=== PATIENT | male | born 1955 | race Caucasian/White ===

== ENCOUNTER → 2017-11-29 12:28 | Outpatient (CLI) | payer OTHER, SELFPAY ==
--- NOTE | 2017-11-29 12:34 | RAD_ITS ---
STUDY: X-RAY - LUMBAR SPINE REASON FOR EXAM: Male, 62 years old. Low back pain. TECHNIQUE: 3 view(s) of the lumbar spine were obtained. COMPARISON: None FINDINGS: Normal lumbar lordosis. There is no substantial scoliosis. There is a normal alignment of the vertebrae. Normal vertebral bodies and endplates. There is intervertebral disc space narrowing in the lower thoracic spine and at L3-4 with osteophyte formation. There is diffuse facet sclerosis. The soft tissue structures are unremarkable. RAD/Lumbar Spine 2 or 3 Views IMPRESSION: Lower thoracic and lumbar spondylosis as described. Electronically Signed: Ajit Ann MD at 10:50 EST , Service support ,
== END ==
PROVIDERS: Family Provider Family Medicine; PCP Family Medicine; Visit Provider Anesthesiology Pain Medicine
DX: M54.9 Dorsalgia, unspecified (principal)
CPT/HCPCS: 72100

== ENCOUNTER → 2018-01-03 14:49 | Outpatient (CLI) | payer OTHER, SELFPAY ==
--- NOTE | 2018-01-03 14:52 | MRI_ITS ---
STUDY: MRI LUMBAR SPINE WITHOUT CONTRAST REASON FOR EXAM: Male, 63 years old. Back pain and bilateral leg TECHNIQUE: Standardized fat and water weighted pulse sequences were obtained in the sagittal and axial planes. COMPARISON: None FINDINGS: T12-L1: Normal endplates. Normal disc height, hydration and morphology. Normal bilateral facet joints. Normal central canal and bilateral lateral recesses. Normal bilateral intervertebral neural foramina. Normal lumbar lordosis. There is no substantial scoliosis. Normal conus medullaris that terminates at T12-L1 L1-2: Normal endplates. Normal disc height, hydration and morphology. Normal bilateral facet joints. Normal central canal and bilateral lateral recesses. Normal bilateral intervertebral neural foramina. L2-3: Normal endplates. Normal disc height, desiccation and minimal annular bulge. Normal bilateral facet joints. Normal central canal and bilateral lateral recesses. Normal bilateral intervertebral neural foramina. L3-4: Grade 1 spondylolisthesis . Mild endplate spurring.. Normal disc height, desiccation and moderate annular bulge with small right paracentral disc protrusion. Bilateral facet arthropathy and thickening of ligamenta flava. Mild narrowing of the central canal. Moderate bilateral recess and neuroforaminal stenosis exaggerated by shortening of the pedicles L4-5: Normal endplates. Normal disc height, desiccation and moderate annular bulge.. Bilateral facet arthropathy and thickening of ligamenta flava.. Normal central canal. Moderate bilateral recess and neuroforaminal stenosis exaggerated by shortened pedicles. L5-S1: Normal endplates. Normal disc height, desiccation and minor annular bulge.. Bilateral facet arthropathy. Normal central canal and bilateral lateral recesses. Normal bilateral intervertebral neural foramina. Normal visualized sacral ala. Bilateral renal cysts are present. Normal visualized paraspinous soft tissue structures. MRI/Spine Lumbar (Routine) IMPRESSION: Spinal stenosis at L3-4 and L4-5 secondary to disc disease and bony hypertrophy exaggerated by shortened pedicles due to spondylolisthesis deformity. Findings as above Electronically Signed: Daron Strange MD at 0:07 EDT , Service support ,
== END ==
PROVIDERS: Family Provider Family Medicine; PCP Family Medicine; Visit Provider Anesthesiology Pain Medicine
DX: M54.9 Dorsalgia, unspecified (principal); M79.606 Pain in leg, unspecified
CPT/HCPCS: 72148

== ENCOUNTER → 2019-08-16 16:56 | Outpatient (CLI) | payer OTHER, SELFPAY ==
--- NOTE | 2019-08-16 16:58 | MRI_ITS ---
STUDY: MRI LUMBAR SPINE WITHOUT CONTRAST REASON FOR EXAM: Male, 64 years old. Low back pain and radiculopathy in both legs with numbness and tingling in the feet TECHNIQUE: Standardized fat and water weighted pulse sequences were obtained in the sagittal and axial planes. COMPARISON: December 26, 2017 and MR lumbar spine FINDINGS: T12-L1: Normal endplates. Normal disc height, hydration and morphology. Normal bilateral facet joints. Normal central canal and bilateral lateral recesses. Normal bilateral intervertebral neural foramina. Normal lumbar lordosis. There is no substantial scoliosis. Normal conus medullaris that terminates at the L1. L1-2: Normal endplates. Normal disc height, hydration and morphology. Normal bilateral facet joints. Normal central canal and bilateral lateral recesses. Normal bilateral intervertebral neural foramina. Small radial annular tear posteriorly. L2-3: Normal endplates. Normal disc height, hydration and morphology. Normal bilateral facet joints. Normal central canal and bilateral lateral recesses. Normal bilateral intervertebral neural foramina. L3-4: Slight anterior subluxation. Moderately severe central and lateral trefoil type spinal stenosis due to a broad-based posterior disc marginal osteophyte and hypertrophic facet disease. L4-5: Moderate hypertrophic facet disease with fluid in the facets. Small broad-based posterior disc marginal osteophyte. Moderate narrowing of the neural foramina bilaterally. Central canal patent. L5-S1: Left paracentral disc marginal osteophyte causing severe narrowing of the neural foramen. Central canal and right neural foramen patent. Normal visualized sacral ala. Normal visualized paraspinous soft tissue structures. Bilateral renal cortical cyst. MRI/Spine Lumbar (Routine) IMPRESSION: Multilevel neural foraminal narrowing as noted above. Grade 1 spondylolisthesis L3-4. Electronically Signed: Liborio Wong MD at 18:46 EST , Service support ,
== END ==
PROVIDERS: Family Provider Family Medicine; PCP Family Medicine; Referring Provider Anesthesiology Pain Medicine; Visit Provider Anesthesiology Pain Medicine
DX: M54.9 Dorsalgia, unspecified (principal); M79.609 Pain in unspecified limb
CPT/HCPCS: 72148

== ENCOUNTER → 2019-10-22 09:23 | Outpatient (CLI) | payer OTHER, SELFPAY ==
[2019-10-22 09:14] VITALS: BMI 32.7
--- NOTE | 2019-10-22 09:23 | RAD_ITS ---
STUDY: X-RAY - LUMBAR SPINE REASON FOR EXAM: Male, 64 years old. LOWER BACK PAIN TECHNIQUE: 6 view(s) of the lumbar spine were obtained. COMPARISON: November 29, 2017 lumbar spine x-ray FINDINGS: Normal lumbar lordosis. There is no substantial scoliosis. L3-L4, there is a 5 to 6 mm anterolisthesis at the level of L3-L4 with disc space narrowing. There are flexion images demonstrated with slight greater 1 to 2 mm interval change with flexion at that level allowing for flexion and extension provided. There is a stable appearing extension upright view when compared to the neutral view. There is multilevel endplate spondylosis of the lumbar vertebrae. The soft tissue structures are unremarkable. RAD/L/S Spine Min 4 Views IMPRESSION: Multilevel degenerative change anterolisthesis of L3-L4 anterolisthesis measuring approximately 5 to 6 mm with minimal increase with flexion. Electronically Signed: Neda Trivedi MD at 23:13 EST Tel , Service support ,
== END ==
PROVIDERS: Family Provider Family Medicine; PCP Family Medicine; Referring Provider Orthopaedic Surgery; Visit Provider Orthopaedic Surgery
DX: M54.5 Low back pain (principal)
CPT/HCPCS: 72110

== ENCOUNTER 2019-11-21 10:00 | Outpatient (RCR) | payer OTHER, SELFPAY ==
[2019-10-22 09:14] VITALS: BMI 32.7
--- NOTE | 2019-10-23 15:59 | HP.PTEVAL ---
Patient's Visit Information ROD CASTRO is a 64 year old M referred to Physical Therapy by Donya Richey MD with a diagnosis of LUMBAR STENOSIS AND SPONDYLOLISTHESIS. Date of Evaluation: 10/23/19 Physical Therapist: Gavi Pride PT, Cert MDT - Visit Plan Frequency: 2-3x /Week Duration: 4-6 Weeks Plan: *NO LUMBAR EXTENSION*. WILL START OFF WITH [facility]AND [facility]ER[facility] AND CONSIDER AQUATIC THERAPY IF NEEDED PER PATIENT PREFERENCE. POSTURE CORRECTION/STRENGTHENING, INSTRUCTION IN APPROPRIATE BODY MECHANICS AND ACTIVITY MODIFICATIONS. DLS WITH A NEUTRAL SPINE ONLY TOLERATED. LILY LE ROM, STRETCHING AND STRENGTHENING. HEP INSTRUCTION. - Subjective Findings: Work/Leisure: RETIRED. Disability: NO. Present symptoms: LOW BACK PAIN. LILY LE PAIN, NUMBNESS AND TINGLING LEFT > RIGHT. LILY LE WEAKNESS. Present since: 2 YEARS AGO. Pain Scale: WORST 7/10, LEAST 2/10. Currently: 5/10. Commenced as a result of: BENT OVER TO CLEAN POOL. Symptoms at onset: LOW BACK AND LEFT CALF. Worse: STANDING, WALKING, LIFTING. Better: SITTING, LYING DOWN. Disturbed sleep: NO. Previous history/Previous treatment: PHYSICAL THERAPY AT THE [facility] ABOUT 2 YEARS AGO. CHRONIC LOW BACK PAIN WITHOUT PROFESSIONAL TREATMENT UNTIL ABOUT 2 YEARS AGO. PAIN MGMT - ABOUT 5 BEBETO'S - SOME HAVE HELPED MORE THAN OTHERS. LAST ONE JUL 2019 HELPED THE MOST. SAW PAIN MGMT TODAY. NEXT INJECTION PENDING IN A FEW WEEKS. H/O CHIROPRACTOR X 7 VISITS SINCE INJURY - PATIENT REPORTS IT HURT MORE THAN IT HELPED. Coughing/sneezing/straining: POSITIVE. Gait: LEGS GET TIRED, HEAVY, WEAK ESPECIALLY GOING UP INCLINES. NOT A LOT OF SHOOTING PAINS DOWN LEGS. Difficulty initiating urinatin: ENLARGED PROSTATE. Accidents: NO. Unexplained weight loss: NO. Imaging: LUMBAR MRI ABOUT 6 WEEKS AGO. X-RAY YESTERDAY. Multilevel degenerative change anterolisthesis of L3-L4 anterolisthesis. measuring approximately 5 to 6 mm with minimal increase with flexion. L3-4: Slight anterior subluxation. Moderately severe central and lateral. trefoil type spinal stenosis due to a broad-based posterior disc marginal. osteophyte and hypertrophic facet disease. L4-5: Moderate hypertrophic facet disease with fluid in the facets. Small. broad-based posterior disc marginal osteophyte. Moderate narrowing of the. neural foramina bilaterally. Central canal patent. L5-S1: Left paracentral disc marginal osteophyte causing severe narrowing. of the neural foramen. Central canal and right neural foramen patent. PMH: ENLARGED PROSTATE. H/O NECK PROBLEMS. Recent major surgery: NO. OTHER: PATIENT REPORTS DR. RICHEY RECOMMENDS SURGERY. REFERRED TO PT TO STRENGTH CORE PRIOR TO SURGERY. CONSIDERING SECOND OPINION. NEUROMUSCULAR REEDUCATION: RETRAINING OF MVMT AND POSTURE FOR SITTING, LYING AND STANDING ACTIVITIES. PATIENT ALSO STATING HE REALLY DOESN'T WANT TO DO AQUATIC THERAPY IF HE CAN AVOID IT BUT WILL CONSIDER IT IF HE HAS TO. - Objective Sitting/Standing Posture: POOR. Lordosis: REDUCED. Lateral shift: NO. Relevant shift: NO. Active Correction of posture: WORSE. Other Observations: INDEP GAIT AND TRANSFERS. Motor deficit: ABLE TO HEEL WALK BUT UNABLE TO TOE WALK ESPECIALLY ON LLE. LILY RIGHT LE 5/5 WITH MMT'ING EXCEPT PLANTAR FLEXORS 4/5. LEFT HIP 4/5, KNEE 5/5, ANKLE DORSIFLEX 5/5, PLANTAR FLEX 4-/5. Sensory deficit: LILY LE LIGHT TOUCH SENSATION APPEARS INTACT AND SYMMETRICAL - FEET NT. ROM deficit: TIGHT LILY HS'S AND GASTROC SOLEUS COMPLEX'S. Lumbar mvmt loss: flex - MIN TO MOD. ext - DEEPIKA. R SG - MOD. L SG - MOD. INCREASED LOW BACK PAIN WITH LUMBAR ROM TESTING ALL PLANES BUT ESPECIALLY EXTENSION. ADVISED PATIENT AGAINST DOING EXTENSION. Core strength: POOR - Goals Goal 1:: DECREASE C/O LOW BACK AND LILY LE SX'S. Goal Time Frame: 4-6 Weeks Goal 2:: IMPROVE STANDING AND WALKING FUNCTION Goal Time Frame: 4-6 Weeks Goal 3:: INSTRUCT IN PROPHYLAXIS Goal Time Frame: 4-6 Weeks - Rehabilitation Potential Rehabilitation Potential: Fair - Anticipated Interventions Patient/Client Instruction: Educate patient on: Condition, Plan of Care, Risk Factors, Benefits of Fitness Program For the Purpose of:: To improve self management Therapeutic Exercise to Include: Strength training, Body mechanics, Postural training, Flexibilty training, In an aquatic setting, Dynamic Lumbar Stabilization For the Purpose of:: To decrease pain, To increase ROM, To improve muscle performance and motor function, To increase tolerance to activity/condition/position, To improve ability of physical actions for home/community/work/leisure Thank you for the opportunity to evaluate your patient. For Medicare and Medicare O plans, please review the plan of care and approve it. It will need to be FAXED BACK to us at [phone] for Medicare purposes. For Medicare only, by signing this I certify the plan of care. Please let me know if there are questions or concerns regarding this plan of care. Physician Signature: Date:
--- NOTE | 2019-11-15 08:45 | HP.PTEVAL2_ITS ---
Patient's Visit Information ROD CASTRO is a 64 year old M referred to Physical Therapy by Donya Vasques MD with a diagnosis of BPPV. Date of Evaluation: 11/15/19 Physical Therapist: Rolf Bolden, ESPERANZA, OCS, CSCS - Visit Plan Frequency: 1x/Week Duration: 4-6 Weeks Plan: weekly x 2-4 as needed for positional treatment adn monitorring. - Subjective Findings: A month ago head started feeling dizzyness with sudden head movements. Described as edge of spinning but not spinning. It starts with sudden turns or looking up. It lasts a cnumber of seconds. Also feels goofy much of tiime low level. Started Insidously. Has history of vertigo bouts but they were much more severe long time ago. Sleep is interrupted when he first lies down he notices this dizzyness. Not employed, retired. Spends day doing what he wants. 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 Dizzyness does not effect activity. Doesn't fall, balance doesn't feel perfect though. - Objective Objective: Walks normal. cervical ROM limited but functional and without increased pain today. Trasnfers normal. - L hallpike milo. + R hallpike milo for up torsional nystagmus 10 seconds with dizzyness. Treated with R Ibeth then abolished. - Balance Scores Functional Gait Assessment Score: 28 % Disability: 6.6700 CATSIB Score (Max score 120 seconds): 120 - Goals Goal 1:: abolish dizzyness 100% Goal Time Frame: 4-6 Weeks - Rehabilitation Potential Physical Therapy Diagnosis: R post canal BPPV Rehabilitation Potential: Good - Anticipated Interventions Patient/Client Instruction: Educate patient on: Condition, Plan of Care For the Purpose of:: To increase tolerance to activity/condition/position Therapeutic Exercise to Include: Neuromotor development For the Purpose of:: To increase tolerance to activity/condition/position Thank you for the opportunity to evaluate your patient. For Medicare and Medicare HMO plans, please review the plan of care and approve it. It will need to be FAXED BACK to us at [phone] for Medicare purposes. For Medicare only, by signing this I certify the plan of care. Please let me know if there are questions or concerns regarding this plan of care. Physician Signature: Date:
--- NOTE | 2019-11-21 10:59 | HP.PTDCSUM_ITS ---
HP - PT D/C Summary It has been my pleasure to treat ROD CASTRO under orders from Donya Richey MD, for the diagnosis of LUMBAR STENOSIS AND SPONDYLOLISTHESIS for a total of 13 visit(s). Discharge Date: Please see the following information for a summary of their discharge status. - Subjective Subjective: PATIENT REPORTS HIS BACK IS DOING PRETTY GOOD. DOING HEP ROUTINELY. JUST HAD A VESTIBULAR THERAPY SESSION PRIOR TO THIS SESSION. VESTIBULAR THERAPIST REQUESTED WE MINIMIZE MOVING PATIENT TODAY IF POSSIBLE. PATIENT REPORTS HIS CORE AND LEGS FEEL STRONGER SINCE STARTING THERAPY. STATES HE CAN TAKE LONGER WALKS NOW. PATIENT REPORTS THE BALLS OF HIS FEET AND HIS TOES ARE STILL NUMB. - Pain LBP Pain Intensity (Out of 10): 3 - Overall Improvement % Improvement: 85 - Objective Objective/Function: PATIENT WAS SEEN TODAY FOR RE-ASSESSMENT OF PROGRESS TOWARD THE SET PT GOALS AND THE NEED FOR FURTHER PHYSICAL THERAPY VS READINESS FOR DISCHARGE. PATIENT HAS DONE VERY WELL WITH THERAPY AND IS APPROPRIATE TO DISCHARGE TO [facility] HOWEVER HE STILL HAS SIGNIFICANT FINDINGS. PATIENT IS DECLINING AQUATIC THERAPY AT THIS TIME. UPON EXAM TODAY: ABLE TO HEEL WALK BUT STILL UNABLE TO TOE WALK ESPECIALLY LILY. RIGHT LE 5/5 WITH MMT'ING EXCEPT PLANTAR FLEXORS 4-/5. LEFT HIP 5/5, KNEE 5/5, ANKLE DORSIFLEX 5/5, PLANTAR FLEX 4-/5. Sensory deficit: LILY LE LIGHT TOUCH SENSATION APPEARS INTACT AND SYMMETRICAL - FEET NT. ROM deficit: TIGHT LILY HS'S AND GASTROC SOLEUS COMPLEX'S. Lumbar mvmt loss: flex - MIN. ext - NT. R SG - MOD. L SG - MOD. INCREASED LOW BACK PAIN WITH LUMBAR ROM TESTING ALL PLANES AND ALTHOUGH NOT TESTED PATIENT REPORTS GETTING PAIN ESPECIALLY EXTENSION. THIS PT CONTINUES TO ADVISE PATIENT AGAINST DOING EXTENSION. Core strength: POOR - Goals Goal 1:: DECREASE C/O LOW BACK AND LILY LE SX'S. Goal Progress: Goal Met Goal 2:: IMPROVE STANDING AND WALKING FUNCTION Goal Progress: Goal Met Goal 3:: INSTRUCT IN PROPHYLAXIS Goal Progress: Goal Met - Plan Plan: D/C TO [facility]DEP [facility] AND FOLLOW UP WITH DR. RICHEY NEXT WK. PATIENT IS AGREEABLE. - D/C Information If there are questions or concerns regarding this patient's physical therapy, please feel free to call me at [phone]. Thank you for the referral of this patient. Sincerely, Gavi Pride, PT, Cert MDT
--- NOTE | 2019-11-28 11:52 | HP.PT.NRP(2) ---
HP - Discharge Summary (2) - Patient Information ROD CASTRO was seen in my office for initial evaluation on 11/15/19. The following Plan of Care was established for this patient: Initial Frequency: 1x/Week Initial Duration: 4-6 Weeks Plan from Re-Evaluation: f/u next week for dizzy check(positional and baalnce and oculomotor if needed.) - Anticipated Interventions Patient/Client Instruction: Educate patient on: Condition, Plan of Care For the Purpose of:: To increase tolerance to activity/condition/position Therapeutic Exercise to Include: Neuromotor development For the Purpose of:: To increase tolerance to activity/condition/position This patient was last seen in our office . Pertinent comments regarding their Physical therapy will appear below: Pt seen two visits for positional treatments adn was 80% better. He was to f/u this week but has called and cancelled stating he is doing good and did not think he needed the appointment. i will discontinue at his request. At this point I will be discontinuing this patient from physical therapy. I would be happy to see this patient again in the future if found appropriate by the physician. Thank you! Rolf Bolden, DPT, OCS, CSCS
== END 2019-11-21 19:00 | disposition home or self-care (01) ==
LOC: PT 10:00
PROVIDERS: Family Provider Family Medicine; PCP Family Medicine; Visit Provider Orthopaedic Surgery
DX: M48.061 Spinal stenosis, lumbar region without neurogenic claudication (principal); M43.16 Spondylolisthesis, lumbar region
CPT/HCPCS: 97110; 97112; 97162; 97164; 97530

== ENCOUNTER 2020-10-17 08:32 | Emergency (ER) | payer OTHER, SELFPAY ==
[2019-12-03 09:50] VITALS: BMI 32.7
[2020-10-17 08:32] VITALS: BP 147/89; PULSE 85; RESP 16; TEMP 35.3; O2SAT 97; BMI 34.0
[2020-10-17 08:46] VITALS: BP 147/89; PULSE 85; RESP 16; TEMP 35.3; O2SAT 97
--- NOTE | 2020-10-17 08:58 | RAD_ITS ---
STUDY: X-RAY - LUMBAR SPINE REASON FOR EXAM: Male, 65 years old. back surgery Dec 2, extreme back pain into the right leg began yesterday, no injury TECHNIQUE: 3 view(s) of the lumbar spine were obtained. COMPARISON: 10/22/2019 FINDINGS: Normal lumbar lordosis. There is no substantial scoliosis. 2 mm of anterolisthesis of L3 on L4. Normal vertebral bodies and endplates. Focal disc space narrowing and osteophyte formation at L3/L4. The soft tissue structures are unremarkable. RAD/Lumbar Spine 2 or 3 Views IMPRESSION: Focal degenerative disc disease at L3/L4 with 2 mm of anterolisthesis of L3 on L4, similar to the prior study. Electronically Signed: Ranulfo Gastelum MD at 9:46 EST Tel , Service support ,
--- NOTE | 2020-10-17 08:59 | ED.DCSUM_ITS ---
- ER Visit Summary Date of Service: 10/17/20 Chief Complaint: Back pain History of Present Illness: The patient is a 65 M who presents with back pain that began yesterday. Patient states it started to improve yesterday evening. Patient states pain is worse today. Patient describes the pain as sharp. Pat tr states the pain radiates to his right lower extremity all the way down to his ankle. Patient admits to some numbness and tingling in his right lower extremity. Patient denies any bowel or bladder changes. Patient denies any saddle anesthesia. Patient denies any recent trauma or injury. Patient states he did have back surgery at the [facility] for spinal stenosis. Physical Examination: Vital signs are stable. Patient is afebrile. Patient is in no acute distress. Musculoskeletal exam reveals some mild tenderness over the right sacroiliac area. The incision over the upper lumbar spine is healing well. There is no erythema. There is no tenderness over the incision. Range of motion was slightly limited in all motions of the lumbar spine secondary to pain. Straight leg raises were negative bilaterally. Strength is 5/5 bilaterally in the lower extremities. There are no sensory deficits noted. Deep tendon reflexes are 2+/4 bilaterally in the lower extremities. Test Results: X-rays of the lumbar spine were obtained. There are 3 views. On my interpretation, there are some degenerative changes. There is no fracture, spondylolisthesis, or spondylolysis noted. Radiologist also interpreted the x- rays and agrees. Emergency Department Course and Treatment: Patient was given injection of morphine here. Patient was given a dose of prednisone. Patient was given a prescription for prednisone. Patient was instructed to follow-up with his primary care physician and spine surgeon in 5 to 7 days. Patient understood and was agreeable with the plan. All questions were answered. Disposition: Discharge home Impression: Lumbar radiculopathy This note was generated with [employer] dictation software. It may contain incorrect words, spelling, and punctuation that were not noted in review of the chart prior to signing ED Disposition - Plan for ED Patient: Disposition: Home or Assisted Living Diagnosis: Lumbar radiculopathy, acute Instructions: ED Sciatica Prescriptions: predniSONE tablet 60 mg PO DAILY #15 tab Prescription Printed Referrals: Rey Godoy MD [Primary Care Provider] - 5-7 Days
[2020-10-17] MEDS: predniSONE 20 MG Tablet 60 MG PO (09:05)
[2020-10-17] MEDS: Morphine 4 MG/ML Syringe IM (09:07)
[2020-10-17 11:06] VITALS: BP 140/80; PULSE 79; RESP 18; O2SAT 99
== END 2020-10-17 11:08 | disposition home or self-care (01) ==
PROVIDERS: Emergency Provider Emergency Medicine; PCP Family Medicine
DX: M54.9 Dorsalgia, unspecified (principal); M51.16 Intervertebral disc disorders with radiculopathy, lumbar region
CPT/HCPCS: 72100; 96372; 99283

== ENCOUNTER 2021-11-10 17:00 | Emergency (ER) | payer OTHER, SELFPAY ==
[2021-11-10 17:01] VITALS: BP 160/108; PULSE 116; RESP 16; TEMP 36.6; O2SAT 95; BMI 34.5
--- NOTE | 2021-11-10 17:19 | EX.ED.GUMALE ---
HPI History of Present Illness Chief Complaint: Complaint Narrative Narrative: Patient presents with symptoms of urinary retention since 8 AM this morning. He states he had surgery on his umbilical hernia by Dr. Mtz at [facility] this morning. He last urinated before the surgery at around 8 AM. He was then let go from the hospital at approximately noon. It has been 6 hours and 20 minutes, and he still has not been able to urinate today. He has past medical history of BPH on Flomax. He complains of suprapubic distention and discomfort with inability to urinate. PFSH PFSH Home Medications meloxicam 7.5 mg tablet 7.5 mg PO DAILY 10/22/19 [History Last Taken Unknown] tamsulosin 0.4 mg capsule 0.4 mg PO DAILY 10/22/19 [History Last Taken Unknown] prednisone 60 mg PO DAILY #15 tab 10/17/20 [Rx Last Taken Unknown] Allergy/AdvReac Type Severity Reaction Status Date / Time amoxicillin Allergy Hives Verified 11/10/21 17:01 ciprofloxacin [From Cipro] Allergy Hives Verified 11/10/21 17:01 Social History Smoking Status: Former smoker ROS ROS ED ROS Narrative Constitutional: No fever, no chills. HEENT: No sore throat. No neck pain. No loss of vision. No rhinorrhea. Cardiovascular: No chest pain. No palpitations. No pedal edema. Respiratory: No cough, no shortness of breath. Abdominal: Suprapubic abdominal pain and pressure. No nausea. No vomiting. Small amount of bleeding from umbilical port incision. Genitourinary: No dysuria. No hematuria. Musculoskeletal: No myalgias. No arthralgias. Neurologic: No headaches. No dizziness. No lightheadedness. Skin: No rash. No change in color. Psychiatric: No depression. No anxiety. EXAM Physical Exam Narrative Exam Narrative: Afebrile. Vital signs noted. HEENT: Normocephalic. Atraumatic. PERRL, EOMI. Neck soft and supple. No point tenderness or step off. Cardiovascular: Regular rate and rhythm. No murmurs, rubs, or gallops appreciated. Respiratory: No tachypnea. Lungs clear to auscultation bilaterally. Gastrointestinal: Abdomen soft, mild suprapubic tenderness with bladder distention, with normoactive bowel sounds. No rebound or guarding. Slightly blood saturated dressing on umbilical port incision. After removal, no active bleeding. Neurological: Awake. Alert. Nonfocal, nonlateralizing. Skin: No rash. Normal color. No pallor. Musculoskeletal: No pedal edema. Full range of motion extremities. Const Vital Signs: 11/10/21 17:01 Temperature 97.9 F Temperature Source Temporal Pulse Rate 116 H Respiratory Rate 16 Blood Pressure 160/108 H Blood Pressure Mean 125 Pulse Ox 95 Oxygen Delivery Method Room Air MDM MDM MDM Narrative Medical decision making narrative: Hastings catheter was placed by RN. There was over a liter of post void residual. Urinalysis was sent and there is no evidence of infection. Patient be given a Hastings leg bag. He already takes Flomax. He will follow up with Dr. Thorpe in the next week for voiding trial. I feel he can be discharged safely home with follow-up. Return instructions to the emergency department were reviewed. Patient states that his bladder pressure has improved significantly since Hastings catheter insertion. Disposition is discharged home in stable condition. Of note, I did remove his umbilical port dressing which did show small amount of scant blood on the ABD pad. There is no active bleeding. Steri-Strips are in place. His dressing was changed by the RN. He will follow up with Dr. Mtz as scheduled. Disposition is discharged home in stable condition. Lab Data Labs: Laboratory Results - last 24 hr 11/10/21 18:20 Urine Color Yellow Urine Clarity Clear Urine pH 6.0 Ur Specific [place] 1.015 Urine Protein Negative Urine Glucose (UA) Normal Urine Ketones Negative Urine Occult Blood Negative Urine Nitrite Negative Urine Bilirubin Negative Urine Urobilinogen Normal Ur Leukocyte Esterase Negative Urine RBC 0 SEEN Urine WBC 0 SEEN Ur Squamous Epith Cells 0 SEEN Urine Bacteria 0 SEEN Urine Mucus 0 SEEN Discharge Plan Triage Chief Complaint: Complaint ED Provider: Koby Clancy Dx/Rx/DC Orders Clinical Impression: Benign prostatic hyperplasia with urinary retention, Encounter for post surgical wound check Instructions: ED Urinary Retention, Male Prescriptions: No Action meloxicam 7.5 mg tablet 7.5 mg PO DAILY RF: 0 tamsulosin 0.4 mg capsule 0.4 mg PO DAILY RF: 0 prednisone 20 MG tablet 60 mg PO DAILY Qty: 15 RF: 0 Primary Care Provider: Rey Godoy Referrals: Korey Thorpe MD [STAFF PHYSICIAN] - As soon as possible (Call the urologist's office tomorrow for an appointment to be seen sometime next week) Rey Godoy MD [Primary Care Provider] - Disposition Disposition: Home, Self Care
[2021-11-10 18:23] LABS: Bacteria 0 SEEN /hpf (None Seen); Mucous, Urine 0 SEEN /hpf (<or=2+); Red Blood Cells-Urine 0 SEEN /hpf (0-5); Squamous Epithelial Cells - UA 0 SEEN /hpf (0-5); White Blood Cells 0 SEEN /hpf (0-5)
[2021-11-10 18:26] LABS: Color, Urine Yellow (Yellow); Glucose, Dipstick Normal (Normal); Ketone-Dipstick Negative (Negative); Leukocyte Esterase-Dipstick Negative /ul (Negative); Nitrite-Dipstick Negative (Negative); Occult Blood-Urine Negative /ul (Negative); Protein-Dipstick Negative (Negative); Specific Gravity, Urine 1.015 (1.002-1.030); Urine Bilirubin Dipstick Negative (Negative); Urine Clarity Clear (Clear); Urine Urobilinogen Normal (Normal)
== END 2021-11-10 19:58 | disposition home or self-care (01) ==
PROVIDERS: Emergency Provider Emergency Medicine; PCP Family Medicine; Visit Provider Emergency Medicine
DX: N40.1 Benign prostatic hyperplasia with lower urinary tract symptoms (principal); Z87.891 Personal history of nicotine dependence; R33.8 Other retention of urine; K42.9 Umbilical hernia without obstruction or gangrene
CPT/HCPCS: 51702; 81001; 99283